=== PATIENT | female | born 1995 | race American Indian/Alaskan Native ===

== ENCOUNTER 2020-12-06 01:13 | Emergency (ER) | payer OTHER ==
[2020-12-06 02:05] VITALS: BP 127/77
[2020-12-06] MEDS ORDERED: HYDROcodone/ACETAMINOPHEN 5-325 MG TAB PO ONE (02:43)
[2020-12-06] MEDS ORDERED: TETANUS,DIPH,PERTUSS(ACELL) VACCINE 0.5 ML SYRINGE IM ONE (02:43)
--- NOTE | 2020-12-06 03:18 | Emergency Department Report ---
ED Burn/Smoke HPI - General Chief complaint: Burn/Smoke Inhalation Stated complaint: BURN ON HAND Source: patient Mode of arrival: Ambulatory Limitations: No Limitations - History of Present Illness MD Complaint: burn -: Sudden, hour(s) Type of Exposure: hot liquid Smoke Inhalation: none Place: home Location - Extremities: Left: Hand Severity: moderate Associated Symptoms: denies other symptoms - Related Data Previous Rx's Medication Instructions Recorded Last Taken Type Ketorolac [Toradol] 10 mg PO Q6H PRN #15 tablet 12/06/20 Unknown Rx Silver Sulfadiazine [Silvadene] 5 gm TP BID 7 Days #1 cream..g. 12/06/20 Unknown Rx Allergies Allergy/AdvReac Type Severity Reaction Status Date / Time Penicillins Allergy Hives Verified 12/06/20 02:12 Burn HPI - History Stated Complaint: BURN ON HAND Chief Complaint: Burn/Smoke Inhalation - Home Meds and Allergies Home Medications: Previous Rx's Medication Instructions Recorded Last Taken Type Ketorolac [Toradol] 10 mg PO Q6H PRN #15 tablet 12/06/20 Unknown Rx Silver Sulfadiazine [Silvadene] 5 gm TP BID 7 Days #1 cream..g. 12/06/20 Unknown Rx Allergies/Adverse Reactions: Allergies Allergy/AdvReac Type Severity Reaction Status Date / Time Penicillins Allergy Hives Verified 12/06/20 02:12 ED Review of Systems ROS: Stated complaint: BURN ON HAND Other details as noted in HPI Comment: All other systems reviewed and negative ED Past Medical Hx - Past Medical History Previous Medical History?: Yes Additional medical history: Pre Eclampsia - Surgical History Past Surgical History?: Yes Additional Surgical History: - Social History Smoking Status: Current Every Day Smoker Substance Use Type: None - Medications Home Medications: Home Medications Medication Instructions Recorded Confirmed Last Taken Type Ketorolac [Toradol] 10 mg PO Q6H PRN #15 tablet 12/06/20 Unknown Rx Silver Sulfadiazine [Silvadene] 5 gm TP BID 7 Days #1 cream..g. 12/06/20 Unknown Rx ED Physical Exam - General Limitations: No Limitations General appearance: alert, in no apparent distress - Head Head exam: Present: atraumatic, normocephalic - Eye Eye exam: Present: normal appearance - ENT ENT exam: Present: mucous membranes moist - Neck Neck exam: Present: normal inspection - Respiratory Respiratory exam: Present: normal lung sounds bilaterally. Absent: respiratory distress - Cardiovascular Cardiovascular Exam: Present: regular rate, normal rhythm. Absent: systolic murmur, diastolic murmur, rubs, gallop - GI/Abdominal GI/Abdominal exam: Present: soft, normal bowel sounds - Extremities Exam Extremities exam: Present: normal inspection, tenderness - Expanded Upper Extremity Exam Left Shoulder Exam: Present: normal inspection, full ROM Upper Arm exam: Present: normal inspection, full ROM Elbow exam: Present: normal inspection, full ROM Hand Wrist exam: Present: tenderness, erythema Hand L/R Back: 1 - Six second-degree burn 2 - Second-degree burn blister 3 - Second-degree burn blister 4 - All other areas of first-degree burn Vascular: Present: normal capillary refill, pulse deficit brachial art. Absent: pulse deficit radial art - Back Exam Back exam: Present: normal inspection. Absent: CVA tenderness (R), CVA tenderness (L) - Neurological Exam Neurological exam: Present: alert, oriented X3, CN II-XII intact, normal gait. Absent: motor sensory deficit, reflexes normal - Psychiatric Psychiatric exam: Present: normal affect, normal mood. Absent: flat affect, manic, suicidal ideation - Skin Skin exam: Present: warm, dry, erythema, other (Persistent degree zheng to the dorsum of the). Absent: rash ED Course Vital Signs 12/06/20 01:30 Temperature 97.9 F Pulse Rate 82 Respiratory 16 Rate Blood Pressure 127/77 O2 Sat by Pulse 100 Oximetry Critical care attestation.: If time is entered above; I have spent that time in minutes in the direct care of this critically ill patient, excluding procedure time. ED Disposition Clinical Impression: Burn, hand, first degree, Burn, hands, second degree Disposition: 01 HOME / SELF CARE / HOMELESS Is pt being admited?: No Does the pt Need Aspirin: No Condition: Stable Instructions: Burn Care, Adult, [id number], Burn Care, Adult, Second-Degree Burn, Adult Prescriptions: Silver Sulfadiazine [Silvadene] 5 gm TP BID 7 Days #1 cream..g. Ketorolac [Toradol] 10 mg PO Q6H PRN #15 tablet PRN Reason: Pain Referrals: [facility] [Outside] - 3-5 Days
== END 2020-12-06 04:45 | disposition home or self-care (01) ==
LOC: ED 01:13
DX: T23.202A Burn of second degree of left hand, unspecified site, initial encounter (principal); Z88.0 Allergy status to penicillin; F17.200 Nicotine dependence, unspecified, uncomplicated; X12.XXXA Contact with other hot fluids, initial encounter; Y93.89 Activity, other specified; Y92.89 Other specified places as the place of occurrence of the external cause; Y99.8 Other external cause status
CPT/HCPCS: 99282